=== PATIENT | male | born 1955 | race Caucasian/White ===

== ENCOUNTER 2020-09-01 10:46 | Emergency (ER) | payer OTHER ==
[~2020-09-01] VITALS: Ht 167.6 cm; Wt 65.9 kg
[~2020-09-01 10:46] MED LIST: ALBU8HFA IH; ASPI-1198 PO; BENZ2TAB10 PO; HALO20TA7 PO; LEVO100T13 PO; NICO-703 TD; OMEP40CA21 PO; QUET300T18 PO; TAMS-13 PO
[2020-09-01 11:40] LABS: BASOPHILS % (AUTO) 0.4 % (0.0-2.0); EOSINOPHILS % (AUTO) 0.4 % (1.0-6.0); LYMPHOCYTES # (AUTO) 2.1 K/uL (1.0-4.8); LYMPHOCYTES % (AUTO) 30.3 % (22.0-44.0); MEAN CORPUSCULAR HEMOGLOBIN 30.6 pg (26.0-34.0); MEAN CORPUSCULAR VOLUME 90 fL (80-100); MONOCYTES # (AUTO) 0.3 K/uL (0.1-1.0); MONOCYTES % (AUTO) 4.3 % (2.0-9.0); NEUTROPHILS # (AUTO) 4.4 K/uL (1.8-7.7); NEUTROPHILS % (AUTO) 64.6 % (40.0-70.0); PLATELET COUNT (AUTO) 193 K/uL (150-450); RED BLOOD CELL COUNT(AUTO) 4.89 MIL/uL (4.50-5.90); RED CELL DISTRIBUTION WIDTH 13.2 % (11.5-14.5)
[2020-09-01 11:55] LABS: ANION GAP 12 mmol/L (8-16); CALCIUM, TOTAL 8.6 mg/dL (8.8-10.5); CARBON DIOXIDE 23 mmol/L (22-29); CHLORIDE 106 mmol/L (98-107); CREATININE 1.12 mg/dL (0.60-1.30); GLOMERULAR FILTR. RATE CALC > 60 mL/min (>60); GLUCOSE,RANDOM 99 mg/dL (70-110); SODIUM SERUM 141 mmol/L (136-145); UREA NITROGEN, BLOOD 16 mg/dL (7-18)
[2020-09-01 11:57] VITALS: BP 126/91
[2020-09-01 12:02] LABS: B-TYPE NATRIURETIC PEPTIDE 7 pg/mL (0-100)
[2020-09-01 12:12] LABS: COVID AG,FIA SOURCE NASOPHARYNGEAL
[2020-09-01 12:21] LABS: ALANINE AMINOTRANSFERASE 17 U/L (12-78); ALBUMIN 3.6 g/dL (3.4-5.0); ALKALINE PHOSPHATASE 91 U/L (46-116); ASPARTATE AMINOTRANSFERASE 13 U/L (15-37); BILIRUBIN,TOTAL 0.4 mg/dL (0.1-1.0); CREATINE KINASE, TOTAL ONLY 81 U/L (39-308); FREE T4 (FREE THYROXINE) 1.14 ng/dL (0.76-1.46); THYROID STIMULATING HORMONE 1.01 uIU/mL (0.36-3.74)
== END 2020-09-01 13:40 | disposition home or self-care (01) ==
LOC: EMS 12:54
DX: G45.9 Transient cerebral ischemic attack, unspecified (principal); F20.9 Schizophrenia, unspecified; F17.210 Nicotine dependence, cigarettes, uncomplicated; J44.9 Chronic obstructive pulmonary disease, unspecified; F32.9 Major depressive disorder, single episode, unspecified; F19.90 Other psychoactive substance use, unspecified, uncomplicated; Z20.822 Contact with and (suspected) exposure to COVID-19
CPT/HCPCS: 36415; 70450; 71045; 80053; 82550; 83880; 84439; 84443; 84484; 85025; 85379; 87040; 87426; 93005; 99285; 99406; U0003

== ENCOUNTER 2023-12-04 12:57 | Emergency (ER) | payer MEDICARE, OTHER ==
[~2023-12-04] VITALS: Ht 170.2 cm; Wt 75.0 kg
[~2023-12-04 12:57] MED LIST changes: +ALBU18HF12 IH; -ALBU8HFA IH; -BENZ2TAB10 PO; +BENZ2TAB84 PO; -QUET300T18 PO; +QUET300T19 PO; -TAMS-13 PO; +TAMS0.4C94 PO
[2023-12-04 13:00] VITALS: BP 132/92; PULSE 98; RESP 18; TEMP 98.3; O2SAT 98
[2023-12-04] MEDS ORDERED: SIMV10TA97 PO (13:06)
[2023-12-04] MEDS ORDERED: HALO10TA20 PO (13:06)
== END 2023-12-04 14:32 | disposition left against medical advice (07) ==
LOC: EMS 13:13
DX: R06.02 Shortness of breath (principal); Z53.21 Procedure and treatment not carried out due to patient leaving prior to being seen by health care provider